=== PATIENT | male | born 1990 | race Caucasian/White ===

== ENCOUNTER 2016-03-27 12:48 | Emergency (ER) | payer BC ==
[2016-03-27] MEDS ORDERED: DIPH/PERTUSS(ACELL)/TETANUS VAC/PF 0.5 ML SYR (>=10YO) IM ONE (13:32)
--- NOTE | 2016-03-27 13:32 | ER Document Report ---
ED Medical Screen (RME) - General Stated Complaint: FINGER INJURY Notes: 25 yo male c/o left thumb injury. 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 unsure of tetnus status. cut through nail, no active bleeding TRAVEL OUTSIDE OF THE [place] IN LAST 30 DAYS: No
--- NOTE | 2016-03-27 16:23 | ER Document Report ---
HPI - HPI Patient complains to provider of: left thumb fingernail laceration Onset: Just prior to arrival Severity: Severe Pain Level: 5 - declines pain medication Context: Patient presents to the emergency department with complaints of left thumbnail lateral laceration. He reports he was using a Hole saw and hit his thumb. He denies pain unless he bumps it. Has full range of motion denies numbness and tingling, good cap refill. Associated Symptoms: None Exacerbated by: Other - bumping his thumb Relieved by: Denies Similar symptoms previously: No Recently seen / treated by doctor: No Past Medical History - General Information source: Patient - Social History Smoking Status: Never Smoker Cigarette use (# per day): No Chew tobacco use (# tins/day): No Frequency of alcohol use: None Drug Abuse: None Occupation: [employer] Family History: None Patient has suicidal ideation: No Patient has homicidal ideation: No - Medical History Medical History: Negative Renal/ Medical History: Denies: Hx Peritoneal Dialysis Surgical Hx: Negative Vertical Provider Document - CONSTITUTIONAL Agree With Documented VS: Yes Exam Limitations: No Limitations General Appearance: WD/WN, No Apparent Distress - INFECTION CONTROL TRAVEL OUTSIDE OF THE [place] IN LAST 30 DAYS: No - HEENT HEENT: Atraumatic, Normocephalic - NECK Neck: Normal Inspection, Supple - RESPIRATORY Respiratory: No Respiratory Distress O2 Sat by Pulse Oximetry: 100 - CARDIOVASCULAR Cardiovascular: Regular Rate - MUSCULOSKELETAL/EXTREMETIES Musculoskeletal/Extremeties: MAEW, FROM, Tender - left thumb lateral, partial fingernail avulsion - NEURO Level of Consciousness: Awake, Alert, Appropriate Motor/Sensory: No Motor Deficit - DERM Integumentary: Warm, Dry, Laceration - left thumbnail partial avulsion, no active bleeding Adult Front & Back Diagram: 1 - partial lateral nail avulsion Course - Re-evaluation Re-evalutation: 03/27/16 17:28 I have consulted the attending provider dr bledsoe per [facility] guidelines, no irregularity seen on review of xray. advised keflex - Vital Signs Vital signs: Temp Pulse Resp BP Pulse Ox 98.6 F 67 14 137/75 H 100 03/27/16 13:27 03/27/16 13:27 03/27/16 13:27 03/27/16 13:27 03/27/16 13:27 - Diagnostic Test Radiology reviewed: Image reviewed, Reports reviewed - IMPRESSION: Subtle irregularity on the distal dorsal- lateral cortex of the distal phalanx of the left thumb which may indicate acute osseous injury Procedures - Immobilization Left Thumb Pre-Proc Neuro Vasc Exam: Normal Immobilizer type: Finger splint (Static) Performed by: Other - latrine cleaner Post-Proc Neuro Vasc Exam: Unchanged from pre-exam Discharge - Discharge Clinical Impression: Elevated blood pressure reading Fingernail avulsion, partial Qualifiers: Encounter type: initial encounter Qualified Code(s): S61.309A - Unspecified open wound of unspecified finger with damage to nail, initial encounter Condition: Stable Disposition: HOME, SELF-CARE Instructions: Avulsed Nail ([facility]), Temporary Splint ([facility]), Tetanus Immunization Given ([facility]), Cephalexin ([facility]) Additional Instructions: *You have been evaluated for partial fingernail avulsion *Maintain the finger splint for comfort *Monitor the finger for signs of infection such as erythema swelling warmth discharge *Apply topical antibiotic *Follow up with your primary care provider for recheck within one week *Return to ED for worsening condition, changes, needs, signs of infection Prescriptions: Cephalexin Monohydrate [Keflex 500 mg Capsule] 500 mg PO QID #20 capsule Forms: Elevated Blood Pressure
[2016-03-27 17:53] VITALS: BP 133/72
== END 2016-03-27 17:53 | disposition home or self-care (01) ==
LOC: ER 12:48
DX: S61.112A Laceration without foreign body of left thumb with damage to nail, initial encounter (principal); W29.8XXA Contact with other powered hand tools and household machinery, initial encounter; Y92.009 Unspecified place in unspecified non-institutional (private) residence as the place of occurrence of the external cause
CPT/HCPCS: 90471; 90715; 99283